=== PATIENT | female | born 1975 | race African-American/Black ===

== ENCOUNTER 2017-08-28 19:49 | Emergency (ER) | payer OTHER ==
[~2017-08-28] VITALS: Ht 165.1 cm; Wt 70.8 kg
[2017-08-28 19:53] VITALS: Ht 165.1 cm; Wt 70.8 kg
[2017-08-28 21:41] VITALS: BP 152/89
== END 2017-08-28 21:41 | disposition home or self-care (01) ==
LOC: ED 19:49
DX: R06.03 Acute respiratory distress (principal); J98.01 Acute bronchospasm; Z91.09 Other allergy status, other than to drugs and biological substances; Z86.73 Personal history of transient ischemic attack (TIA), and cerebral infarction without residual deficits
CPT/HCPCS: J1200; J2930; J3490; J7030; J7613